=== PATIENT | male | born 1995 | race Two or more races ===

== ENCOUNTER 2019-03-19 21:39 | Emergency (ER) | payer OTHER ==
[~2019-03-19] VITALS: Ht 172.7 cm; Wt 113.4 kg
[2019-03-19 21:40] VITALS: BP 137/86
--- NOTE | 2019-03-19 21:40 | NUR ---
ED Nurse Note: Patient walked into ED c/o left sole laceration, patient states that he might have steped on glass, laceration is about 2 inches in length. patient reports his pain a 10/10 pain. patient is alert and oriented x4, ambulatory with a steady gait, VSS
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
[2019-03-19] MEDS ORDERED: Tetanus/Diptheria/Pertussis IM ONE (21:45)
[2019-03-19] MEDS ORDERED: CEPHALEXIN500 MG ORAL (22:05)
[2019-03-19 22:09] VITALS: BP 130/80
--- NOTE | 2019-03-19 22:09 | NUR ---
ER DISCHARGE NOTE: Patient is cleared to be discharged per ERMD, pt is aox4, on room air, with stable vital signs. pt was given dc and prescription instructions, pt was able to verbalize understanding, pt id band removed without complications. pt is able to ambulate with steady gait. pt took all belongings. Patient is ambulating accompanied by [employer]
== END 2019-03-19 22:10 ==
LOC: EDBD 21:39 → EMR 21:48
DX: S91.312A Laceration without foreign body, left foot, initial encounter (principal); Z23 Encounter for immunization; X99.0XXA Assault by sharp glass, initial encounter; Y92.9 Unspecified place or not applicable
CPT/HCPCS: 90471; 90715; 99283